=== PATIENT | female | born 1995 | race Caucasian/White ===

== ENCOUNTER 2022-11-06 07:05 | Day surgery (SDC) | payer OTHER ==
[~2022-11-06 07:05] MED LIST: PRENATABS RX T1 EACH PO; ZOLOFT25 MG PO
== END 2022-11-06 13:05 | disposition home or self-care (01) ==
LOC: CIR.AMB 07:05
PROVIDERS: ATTEND Obstetrics & Gynecology
DX: O02.1 Missed abortion (principal); O72.2 Delayed and secondary postpartum hemorrhage; Z20.822 Contact with and (suspected) exposure to COVID-19

== ENCOUNTER 2024-01-06 09:50 | Outpatient (CLI) | payer OTHER | END 2024-01-06 09:51 | disposition home or self-care (01) | LOC: NUCLEAR 09:50 | PROVIDERS: ATTEND Obstetrics & Gynecology | DX: I87.1 Compression of vein (principal) ==

== ENCOUNTER 2024-01-06 12:16 | Outpatient (CLI) | payer OTHER | END 2024-01-06 13:15 | disposition home or self-care (01) | LOC: NST 12:16 | PROVIDERS: ATTEND Obstetrics & Gynecology | DX: Z34.83 Encounter for supervision of other normal pregnancy, third trimester (principal) ==

== ENCOUNTER 2024-01-27 15:24 | Outpatient (CLI) | payer OTHER | END 2024-01-27 16:52 | disposition home or self-care (01) | LOC: NST 15:24 | PROVIDERS: ATTEND Obstetrics & Gynecology | DX: Z34.83 Encounter for supervision of other normal pregnancy, third trimester (principal) ==

== ENCOUNTER 2024-01-30 15:00 | Inpatient (IN) | payer OTHER ==
[~2024-01-30] VITALS: Ht 154.9 cm; Wt 3.6 kg
[2024-02-04] MEDS ORDERED: OXYTOCIN 500 ML IV SCH (14:15)
[2024-02-04] MEDS ORDERED: RINGERS SOLUTION,LACTATED 1,000 ML IV SCH ×2 (14:15→20:00)
[2024-02-04 14:26] LABS: HEMATOCRIT 35.2 % (36.0-45.00); HEMOGLOBIN 11.7 g/dL (12.0-15.00); MEAN CELL VOLUME 86.2 fL (80.00-100.00); MEAN CORPUSCULAR HEMOGLOBIN 28.8 pg (27.00-32.0); MEAN CORPUSCULAR HGB CONC 33.4 g/dl (32.0-36.0); PLATELET COUNT 227 K/uL (150-450); RED BLOOD COUNT 4.08 M/uL (4.00-6.00); RED CELL DISTRIBUTION WIDTH 14.8 % (11.5-14.5)
[2024-02-04 14:46] LABS: INR < 0.93; PARTIAL THROMBOPLASTIN TIME 27.8 SECONDS (22.0-34.0); PROTHROMBIN TIME 9.7 SECONDS (9.0-11.5)
[2024-02-04 15:03] LABS: ALBUMIN 2.8 gm/dL (3.4-5.0); BILIRUBIN TOTAL 0.36 mg/dL (0.3-1.2); CALCIUM 9.8 mg/dL (8.5-10.1); CREATININE SERUM 0.75 mg/dL (0.55-1.02); GFR 90.73; GLOBULINA 3.6 G/DL (2.4-3.5); POTASSIUM 4.37 mEq/L (3.5-5.1); TOTAL PROTEIN 6.4 gm/dL (6.4-8.2)
[2024-02-04] MEDS ORDERED: MORPHINE SULFATE 4 MG/ML CARTRIDGE IV ONE (15:15)
[2024-02-04] MEDS ORDERED: TERBUTALINE SULFATE 1 MG/ML AMPUL IV STA (16:59)
[2024-02-04] MEDS ORDERED: CITRIC ACID/SODIUM CITRATE 30 ML BLIST.PACK PO SCH (19:00)
[2024-02-04] MEDS ORDERED: CEFAZOLIN SODIUM 1,000 MG VIAL IV SCH (19:00)
[2024-02-04] MEDS ORDERED: KETOROLAC TROMETHAMINE 30 MG VIAL IV SCH (19:52)
[2024-02-04] MEDS ORDERED: MORPHINE SULFATE 4 MG/ML CARTRIDGE IV PRN (20:00)
[2024-02-04] MEDS ORDERED: OXYTOCIN 1,000 ML IV ONE (20:00)
[2024-02-04] MEDS ORDERED: ERYTHROMYCIN BASE 1 GM TUBE OP ONE (20:30)
[2024-02-04] MEDS ORDERED: OXYTOCIN 10 UNITS/ML VIAL IV ONE (20:30)
[2024-02-05] MEDS ORDERED: ACETAMINOPHEN 500 MG GEL..CAP PO SCH
[2024-02-05] MEDS ORDERED: ONDANSETRON HCL 2 MG/ML VIAL IV SCH
[2024-02-05] MEDS ORDERED: SIMETHICONE 125 MG CAPSULE PO SCH (01:00)
[2024-02-05] MEDS ORDERED: GABAPENTIN 300 MG CAPSULE PO SCH (01:00)
[2024-02-05 07:06] LABS: HEMOGLOBIN 9.7 g/dL (12.0-15.00); MEAN CELL VOLUME 87.4 fL (80.00-100.00); MEAN CORPUSCULAR HEMOGLOBIN 29.2 pg (27.00-32.0); MEAN CORPUSCULAR HGB CONC 33.5 g/dl (32.0-36.0); PLATELET COUNT 203 K/uL (150-450); RED BLOOD COUNT 3.31 M/uL (4.00-6.00); RED CELL DISTRIBUTION WIDTH 14.4 % (11.5-14.5)
[2024-02-05] MEDS ORDERED: OxyCODONE HCL 5 MG TABLET (ROXICODONE) PO PRN (08:00)
[2024-02-05] MEDS ORDERED: KETOROLAC TROMETHAMINE 10 MG TABLET PO SCH (08:00)
[2024-02-05] MEDS ORDERED: DOCUSATE SODIUM 100MG CAP PO SCH (09:00)
[2024-02-06] MEDS ORDERED: FF) RHO(D) IMMUNE GLOBULIN (POM) IM NR (08:15)
== END 2024-02-07 14:31 | disposition home or self-care (01) | DRG 788 ==
LOC: LDR 02-04 13:39 → OB/GYN 02-04 13:39 → LDR 02-04 16:23 → OB/GYN 02-04 16:33
PROVIDERS: ADMIT Obstetrics & Gynecology; ATTEND Obstetrics & Gynecology
PROC: 4A1HXCZ Monitoring of Products of Conception, Cardiac Rate, External Approach (ICD-10-PCS; 2024-02-04)
PROC: 10D00Z1 Extraction of Products of Conception, Low, Open Approach (ICD-10-PCS; principal; 2024-02-04 21:45)
DX: O36.8130 Decreased fetal movements, third trimester, not applicable or unspecified (principal); Z3A.38 38 weeks gestation of pregnancy; Z37.0 Single live birth; Z20.822 Contact with and (suspected) exposure to COVID-19